=== PATIENT | female | born 1965 | race Caucasian/White ===

== ENCOUNTER → 2017-11-23 16:09 | Outpatient (CLI) | payer OTHER, SELFPAY ==
--- NOTE | 2017-11-23 | DI.MRI.S_ITS ---
PROCEDURE: MR HAND LT WO/W CON INDICATIONS: PRIMARY OSTEOARTHRITIS OF LEFT HAND TECHNIQUE: Noncontrast coronal T1 spin echo and T2 fast spin echo with fat saturation, axial proton density fast spin echo and T2 fast spin echo with fat saturation, axial T1 spin echo with fat saturation, sagittal T1 spin echo and STIR through the hand and fingers. Post-contrast axial, coronal, and sagittal T1 spin echo through the hand and fingers. COMPARISON: [facility], CR, XR HAND 3+ VIEWS BILATERAL, 08/16/2017, 14:21. FINDINGS: Image quality: Diagnostic. Bones: No acute fracture, dislocation, or suspicious osseous lesion is identified involving the osseous structures of the left hand. There is subtle marrow edema identified involving the triquetrum. There slight bony irregularity at the proximal aspect of the bone at the radiocarpal joint region, which correlates with the abnormality on the conventional radiographs. No suspicious osseous enhancement is identified. There is mild cortical irregularity with subtle enhancement evident along the ulnar head of the 3rd metacarpal. Soft tissues: There is mild edema about the flexor tendon sheath of the 3rd digit, centered near the metacarpal phalangeal joint. Otherwise, the remainder of the flexor and extensor tendons are unremarkable. Visualized muscles demonstrate normal bulk and internal signal. No intramuscular masses identified. No ganglion cysts. IMPRESSION: 1. Subtle triquetral erosion is suspicious for inflammatory arthropathy. 2. Mild bony irregularity involving the ulnar aspect of the 3rd metacarpal head with corresponding thickening of the flexor tendon sheath of the 3rd digit does raise the suspicion for an inflammatory process. Please correlate clinically. Dictated by: Terry Lau M.D. on 11/24/2017 at 15:10 Approved by: Terry Lau M.D. on 11/24/2017 at 15:17
== END ==
PROVIDERS: PCP Family Medicine; Visit Provider Specialist/Technologist Athletic Trainer
DX: M19.042 Primary osteoarthritis, left hand (principal); R93.7 Abnormal findings on diagnostic imaging of other parts of musculoskeletal system
CPT/HCPCS: 73220; A9579

== ENCOUNTER → 2018-10-11 12:48 | Outpatient (CLI) | payer OTHER, SELFPAY ==
--- NOTE | 2018-10-11 | DI.MRI.S_ITS ---
PROCEDURE: MR LUMBAR SPINE WO CON INDICATIONS: LOW BACK PAIN TECHNIQUE: Noncontrast sagittal T1 spin echo and T2 fast echo, sagittal STIR, axial T1 and T2 fast spin echo through the lumbar spine. In cases with scoliosis, additional coronal T2 fast spin echo may be performed. COMPARISON: None. FINDINGS: Image quality: Excellent. Alignment and Curvature: There is mild grade 1 anterolisthesis seen at the L5-S1 level, position bilateral pars defects. Bone Marrow: Marrow is of normal overall signal. Scattered foci are seen, which are hyperintense on T1-weighted and T2-weighted imaging, which are most consistent with benign vertebral body hemangiomas. No acute vertebral body compression fractures. Spinal Cord: Conus medullaris terminates at the L1 level. Visualized cord demonstrates normal signal and size. Paraspinous Soft Tissues: No paravertebral masses. 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 T12-L1: Normal appearance. L1-L2: Normal appearance. L2-L3: The disc height is well-preserved. Loss of disc signal is seen at this level. Mild generalized disc bulge is seen. No significant neural foraminal or central canal narrowing can be seen. L3-L4: Moderate disc bulge is seen, with a central/left disc extrusion also seen. There is an associated annular fissure. Moderate central canal narrowing is seen. There is mass effect upon the regional nerve roots, including upon the transiting left L4 and L5 nerve roots. There is moderate right-sided and mild left-sided neural foraminal narrowing seen at this level. L4-L5: Moderate loss of disc height is seen. Loss of disc signal is seen. Moderate disc bulge is seen, with a central disc extrusion, with inferior migration of the disc material. Mild facet joint hypertrophy is seen. Moderate bilateral neural foraminal narrowing is seen, left worse than right. Mild to moderate central canal narrowing is seen. L5-S1: Mild loss of disc height is seen. Loss of disc signal is seen. [id number] facet hypertrophy is seen. There is moderate to severe bilateral neural foraminal narrowing seen, with associated compression upon the exiting nerve roots. No significant central canal narrowing is seen. IMPRESSION: There is a central/left disc extrusion at L3-L4, with associated moderate central canal narrowing and mass effect upon the regional nerve roots. At L4-L5, there is a central disc extrusion, with inferior migration of disc material. Moderate bilateral neural foraminal narrowing is seen at this level. Grade 1 anterolisthesis is seen at L5-S1, with associated moderate to severe bilateral neural foraminal narrowing and associated compression upon the exiting nerve roots. Duplicated IVC incidentally noted. Dictated by: Jamie Padron M.D. on 10/11/2018 at 14:20 Approved by: Jamie Padron M.D. on 10/11/2018 at 14:26
== END ==
PROVIDERS: PCP Family Medicine; Visit Provider Physical Medicine & Rehabilitation Pain Medicine
DX: M54.5 Low back pain (principal); M51.26 Other intervertebral disc displacement, lumbar region; M43.17 Spondylolisthesis, lumbosacral region; M48.061 Spinal stenosis, lumbar region without neurogenic claudication; M48.07 Spinal stenosis, lumbosacral region
CPT/HCPCS: 72148

== ENCOUNTER 2019-06-12 18:19 | Emergency (ER) | payer OTHER, SELFPAY ==
[2019-06-12 18:23] VITALS: BP 144/78; PULSE 98; RESP 16; TEMP 36.3; O2SAT 99; BMI 29.1
--- NOTE | 2019-06-12 20:36 | ED_ITS ---
HPI - Chest Pain General Chief Complaint: Chest Pain Stated Complaint: SEVERE NECK PAIN AND CHEST PAIN AND LEFT SIDE PAIN Time Seen by Provider: 06/12/19 20:30 Source: patient Mode of arrival: Ambulatory Limitations: no limitations History of Present Illness HPI narrative: 53-year-old female here with multiple complaints to include left arm pain, left-sided chest pain, left breast pain, right breast sprain, and le ft-sided neck pain. She states that approximately 1 week ago she underwent a injection lower back for back pain. Her symptoms that she came to the emergency department today started shortly after this. She saw her primary doctor today. She states she received shot of ?Kenalog ?and was sent home with Robaxin. She comes to the emergency department today for symptoms. Related Data Previous Rx's Medication Instructions Recorded lorazepam [Ativan] 1 mg PO TID PRN #10 tab 06/12/19 prednisone 20 mg PO DAILY 3 Days #3 tab 06/12/19 Allergies Allergy/AdvReac Type Severity Reaction Status Date / Time bupropion [From Wellbutrin] Allergy Severe Anaphylaxis Verified 06/12/19 18:31 dihydroergotamine Allergy Severe Anaphylaxis Verified 06/12/19 18:31 [From Migranal] sumatriptan [From Imitrex] Allergy Severe Anaphylaxis Verified 06/12/19 18:30 zolmitriptan [From Zomig] Allergy Severe Anaphylaxis Verified 06/12/19 18:31 acetaminophen [From [place]] AdvReac Mild Verified 06/12/19 18:32 hydrocodone [From [place]] AdvReac Mild Verified 06/12/19 18:32 Review of Systems Constitutional Constitutional: Denies fatigue and Denies fever(s) ENT Ears, Nose, Mouth, and Throat: Reports neck pain Cardiovascular Cardiovascular: Reports chest pain and Denies dyspnea Respiratory Respiratory: Denies dyspnea Gastrointestinal Gastrointestinal: Denies abdominal pain, Denies nausea and Denies vomiting Genitourinary Genitourinary: Denies dysuria and Denies vaginal discharge Musculoskeletal Musculoskeletal: Reports back pain, Reports myalgias, Reports arthralgias and Reports neck pain Integumentary/Breasts Skin/Breast: Denies rash Endocrine Endocrine: Denies fatigue Hematologic/Lymphatic Hematologic/Lymphatic: Denies easy bleeding and Denies easy bruising Allergic/Immunologic Allergic/Immunologic: Denies urticaria Patient History Medical History Fibromyalgia (Acute) Social History Smoking Status: Current every day smoker Smoking Status: Current every day smoker alcohol intake frequency: holidays/special occasions only Substance Use Type: does not use Exam Initial Vital Signs Initial Vital Signs: Vital Signs Temperature 97.3 F L 06/12/19 18:23 Pulse Rate 98 H 06/12/19 18:23 Respiratory Rate 16 06/12/19 18:23 Blood Pressure 144/78 H 06/12/19 18:23 Pulse Oximetry 99 06/12/19 18:23 Const General: cooperative and comfortable Limitations: mental status not altered HENMT Head: normal to inspection and normocephalic Resp Effort & Inspection: normal respiratory effort Auscultation: clear to auscultation bilaterally Cardio Rate: regular rate Rhythm: regular rhythm GI Inspection: non-distended Palpation: soft and No firm Skin Lesions: no lesions Rashes: no rashes Neuro General: alert and awake Cognition: normal cognition Speech: speech normal Motor: muscle tone normal throughout Extrem General: normal to inspection and capillary refill normal Psych Appearance: grossly normal and well kempt Course Orders Ordered: ED Orders 06/12/19 20:34 Complete Blood Count AUTO DIFF Stat Comprehensive Metabolic Panel Stat D Dimer Stat Lipase Stat Partial Thromboplastin Time Stat Prothrombin Time INR Stat Troponin I Stat 06/12/19 20:38 XR chest 1V Stat Discontinued Medications Hydromorphone HCl (Dilaudid) 1 mg IV NOW ONE Stop: 06/12/19 20:38 Last Admin: 06/12/19 20:50 Dose: 1 mg Documented by: IZZY Vital Signs Vital signs: Vital Signs - 8 hr 06/12/19 21:45 Pulse Rate 85 Respiratory Rate 28 H Blood Pressure [Right Arm] 149/70 H Pulse Oximetry 96 MDM - Chest Pain Lab Data Attestation: I reviewed the patient's lab results. Result diagrams: 06/12/19 20:34 06/12/19 20:34 Labs: Lab Results 06/12/19 06/12/19 06/12/19 Range/Units 20:34 20:34 20:34 WBC 8.4 (4.5-11.0) X10^3/uL RBC 3.89 L (4.0-5.2) X10^6/uL Hgb 12.6 (12.0-16.0) g/dL Hct 37.2 (36-46) % MCV 95.4 (80-100) fL MCH 32.4 (26-34) PG MCHC 33.9 (30-36) % RDW 12.8 (11.6-14.8) % Plt Count 314 (150-400) X10^3/uL Neut % (Auto) 65.1 (50-75) % Lymph % (Auto) 27.0 (25-40) % [place] % (Auto) 6.1 (3-14) % Eos % (Auto) 1.4 L (2-4) % Baso % (Auto) 0.4 (0-2) % Neut # (Auto) 5500 (9741-0366) /uL Lymph # (Auto) 2300 (0629-6041) /uL [place] # (Auto) 500 (0-900) /uL Eos # (Auto) 100 (0-450) /uL Baso # (Auto) 0 (0-100) /uL PT 10.3 (10.1-12.7) SECONDS INR 0.9 (0.9-1.3) APTT 30 (26.4-36.2) SECONDS D-Dimer < 200 (<230) ng/mL Sodium 135 L (137-145) mmol/L Potassium 4.3 (3.4-5.1) mmol/L Chloride 97 L (98-107) mmol/L Carbon Dioxide 28 (22-32) mmol/L BUN 17 (7-17) mg/dL Creatinine 0.62 (0.52-1.04) mg/dL Estimated GFR > 60.0 (>60) mL/min BUN/Creatinine Ratio 27.4 H (6-22) Glucose 107 H (70-100) mg/dL Calcium 10.1 (8.4-10.2) mg/dL Total Bilirubin 0.4 (0.2-1.3) mg/dL AST 47 H (14-36) IU/L ALT 65 H (<35) IU/L Alkaline Phosphatase 106 (38-126) U/L Troponin I < 0.012 (0.01-0.034) ng/mL Total Protein 8.4 H (6.3-8.2) g/dL Albumin 5.0 (3.5-5.0) g/dL Globulin 3.4 (1.7-4.1) g/dL Albumin/Globulin Ratio 1.5 (1.0-2.8) Lipase 70 (23-300) U/L Imaging Data Chest x-ray: Radiologist's Impression: [address] [address] XRay Report Signed Patient: CHOLO RUSS#: [id number] : 1965Acct:[id number] Age/Sex: 53 / FDate of Service: 06/12/19 Loc: ED Accession Number: [id number] Procedure: XR chest 1V Ordering Provider: Kade Ballard D.O. PROCEDURE: XR CHEST 1V INDICATIONS: Chest pain TECHNIQUE: One view of the chest was acquired. COMPARISON: None. FINDINGS: Surgical changes and devices: Overlying monitoring wires. Lungs and pleura: Lungs are clear. No pleural effusions or pneumothorax. Mediastinum: Mediastinal contours appear normal. Heart size is normal. Bones and chest wall: No suspicious bony lesions. Overlying soft tissues appear unremarkable. IMPRESSION: No acute cardiopulmonary disease. Dictated by: Luana Quinn M.D. on 06/12/2019 at 21:09 Approved by: Luana Quinn M.D. on 06/12/2019 at 21:10 ECG Data Attestation: I personally reviewed and interpreted this ECG as follows: Prior ECG tracings: not available for review Interpretation: Sinus rhythm Ventricular rate of 95 Normal axis Normal QRS Normal QTC No ST T wave changes MDM Narrative Medical decision making narrative: Workup here in the emergency department negative for any acute pathology. She reported improvement in symptoms after pain medication. I do suspect that her symptoms are related to her fibromyalgia and potentially somewhat anxiety issues. Feel we could hold on further workup for now. We did discuss return precautions and follow-up instructions. She expressed understanding and agreement. Discharge Plan Departure Patient Disposition: Home Clinical Impression: Left shoulder pain Qualifiers: Chronicity: acute Qualified Code(s): M25.512 - Pain in left shoulder Discharge Date/Time: 06/12/19 22:08 Instructions: DI for Shoulder Pain Activity Restrictions/Additional Instructions: Recommend that you continue with the medications like we discussed. Contact your primary provider for follow-up. Return to the emergency department for any new or worsening symptoms Prescriptions: New prednisone 20 mg tablet 20 mg PO DAILY 3 Days Qty: 3 RF: 0 lorazepam [Ativan] 1 mg tablet 1 mg PO TID PRN (Reason: anxiety) Qty: 10 RF: 0 Referrals: Lorena Gamble DO [Primary Care Provider] -
[2019-06-12] MEDS: HYDROMORPHONE 1 MG INJ IV (20:50)
[2019-06-12 21:02] LABS: INR 0.9 (0.9-1.3); Prothrombin Time 10.3 SECONDS (10.1-12.7)
[2019-06-12 21:03] LABS: Alanine Aminotransferase 65 IU/L (<35); Albumin Globulin Ratio 1.5 (1.0-2.8); Alkaline Phosphatase 106 U/L (38-126); Aspartate Aminotransferase 47 IU/L (14-36); BUN Creatinine Ratio 27.4 (6-22); Bilirubin Total 0.4 mg/dL (0.2-1.3); Blood Urea Nitrogen 17 mg/dL (7-17); Calcium 10.1 mg/dL (8.4-10.2); Carbon Dioxide 28 mmol/L (22-32); Chloride 97 mmol/L (98-107); Estimated Glomerular Filt Rate > 60.0 mL/min (>60); Globulin 3.4 g/dL (1.7-4.1); Glucose 107 mg/dL (70-100); HEMOLYSIS 34 (0-50); Lipase 70 U/L (23-300); Potassium 4.3 mmol/L (3.4-5.1); Sodium 135 mmol/L (137-145); Total Protein 8.4 g/dL (6.3-8.2)
[2019-06-12 21:04] LABS: Add Manual Diff / Slide Review NO; Basophils Absolute Auto 0 /uL (0-100); Basophils Percent Auto 0.4 % (0-2); Eosinophils Absolute Auto 100 /uL (0-450); Eosinophils Percent Auto 1.4 % (2-4); Hematocrit 37.2 % (36-46); Hemoglobin 12.6 g/dL (12.0-16.0); Lymphocytes Absolute Auto 2300 /uL (1100-4500); Mean Corpuscular HGB Conc 33.9 % (30-36); Mean Corpuscular Hemoglobin 32.4 PG (26-34); Mean Corpuscular Volume 95.4 fL (80-100); Monocytes Absolute Auto 500 /uL (0-900); Monocytes Percent Auto 6.1 % (3-14); Neutrophils Absolute Auto 5500 /uL (1500-7000); Neutrophils Percent Auto 65.1 % (50-75); Platelet Count 314 X10^3/uL (150-400); Red Blood Cell Count 3.89 X10^6/uL (4.0-5.2); Red Cell Distribution Width 12.8 % (11.6-14.8); White Blood Cell Count 8.4 X10^3/uL (4.5-11.0)
[2019-06-12 21:05] LABS: PTT Partial Thromboplastin Tim 30 SECONDS (26.4-36.2)
[2019-06-12 21:07] LABS: D Dimer < 200 ng/mL (<230)
[2019-06-12 21:14] LABS: Troponin I < 0.012 ng/mL (0.01-0.034)
[2019-06-12 21:45] VITALS: BP 149/70; PULSE 85; RESP 28; O2SAT 96
== END 2019-06-12 22:08 | disposition home or self-care (01) ==
PROVIDERS: Emergency Provider Emergency Medicine; PCP Family Medicine
DX: M25.512 Pain in left shoulder (principal); M54.2 Cervicalgia; R07.9 Chest pain, unspecified; M79.7 Fibromyalgia
CPT/HCPCS: 36415; 71045; 80053; 83690; 84484; 85025; 85379; 85610; 85730; 93005; 96374; 99284; J1170